=== PATIENT | male | born 1950 | race Caucasian/White ===

== ENCOUNTER → 2018-04-12 | Outpatient (CLI) | payer OTHER | END | disposition home or self-care (01) | LOC: CFH 08:36 | PROVIDERS: ATTEND Family Medicine | DX: M51.25 Other intervertebral disc displacement, thoracolumbar region (principal); M48.07 Spinal stenosis, lumbosacral region; S34.103A Unspecified injury to L3 level of lumbar spinal cord, initial encounter; X58.XXXA Exposure to other specified factors, initial encounter; Y93.89 Activity, other specified; Y92.89 Other specified places as the place of occurrence of the external cause; Y99.8 Other external cause status | CPT/HCPCS: 72148 ==